=== PATIENT | male | born 1990 | race American Indian/Alaskan Native ===

== ENCOUNTER 2017-01-25 23:43 | Emergency (ER) | payer OTHER ==
[2017-01-26 00:37] VITALS: BP 118/65
[2017-01-26] MEDS ORDERED: TYLENOL PO ONE (03:25)
[2017-01-26] MEDS ORDERED: TYLENOL ONE (03:32)
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
== END 2017-01-26 05:53 | disposition home or self-care (01) ==
LOC: ED 23:43
DX: S02.5XXA Fracture of tooth (traumatic), initial encounter for closed fracture (principal); G89.21 Chronic pain due to trauma; K02.9 Dental caries, unspecified; X58.XXXA Exposure to other specified factors, initial encounter; Y93.89 Activity, other specified; Y99.8 Other external cause status; Y92.89 Other specified places as the place of occurrence of the external cause
CPT/HCPCS: 99282